=== PATIENT | male | born 1950 | race Caucasian/White ===

== ENCOUNTER → 2017-07-20 | Outpatient (CLI) | payer MEDICARE, OTHER ==
--- NOTE | 2017-07-24 11:06 | RSPPFT ---
DATE OF PROCEDURE: 07/20/17 COMMENTS: Spirometry with normal flow rates and ratios. Slow vital capacity is 109% of predicted. TLC is 90%. Diffusion capacity is normal. A non-significant response to acutely inhaled bronchodilator noted. Room air arterial blood gases show pH of 7.42, PCO2 of 41, PO2 of 86. IMPRESSION: 1. No evidence of airways obstruction. 2. No evidence of airways restriction. 3. Normal diffusion capacity. 4. Non-significant response to inhaled bronchodilator. 5. Adequate oxygenation and alveolar ventilation.
== END ==
LOC: HRSP 10:31
PROVIDERS: ATTEND Internal Medicine Sleep Medicine
DX: R06.89 Other abnormalities of breathing (principal)
CPT/HCPCS: 36600; 82805; 94060; 94726; 94729